=== PATIENT | female | born 1975 | race Caucasian/White ===

== ENCOUNTER 2020-09-27 20:12 | Emergency (ER) | payer OTHER ==
[~2020-09-27] VITALS: Ht 167.6 cm; Wt 122.7 kg
[2020-09-27 20:41] VITALS: TEMP 98.1
[2020-09-27] MEDS ORDERED: ULTRAM 50MG TAB50 MG PO (22:18)
[2020-09-27 22:29] VITALS: BP 146/70; PULSE 68
== END 2020-09-27 22:29 | disposition home or self-care (01) ==
LOC: COL.ER 20:12
DX: S70.02XA Contusion of left hip, initial encounter (principal); W01.0XXA Fall on same level from slipping, tripping and stumbling without subsequent striking against object, initial encounter; Y93.54 Activity, bowling